=== PATIENT | male | born 1980 | race Two or more races ===

== ENCOUNTER 2023-12-09 21:12 | Emergency (ER) | payer OTHER ==
[~2023-12-09] VITALS: Ht 177.8 cm; Wt 111.1 kg
[2023-12-09] MEDS ORDERED: TRAMADOL HCL E100 MG PO (23:09)
== END 2023-12-09 23:13 | disposition home or self-care (01) ==
LOC: ER 21:13
DX: K08.89 Other specified disorders of teeth and supporting structures (principal)